=== PATIENT | male | born 1990 | race Two or more races ===

== ENCOUNTER 2018-11-06 13:00 | Emergency (ER) | payer SELFPAY ==
[~2018-11-06] VITALS: Ht 170.2 cm; Wt 104.3 kg
[2018-11-06 13:07] VITALS: BP 140/74
[2018-11-06] MEDS ORDERED: CEFTRIAXONE 500 MG VIAL ONE (13:23)
[2018-11-06] MEDS ORDERED: AZITHROMYCIN 250 MG TABLET ONE (13:23)
[2018-11-06] MEDS ORDERED: LIDOCAINE /MPF 1% VIAL 5 ML VIAL ONE (13:24)
[2018-11-06] MEDS ORDERED: CEFTRIAXONE 1 G VIAL IM ONE (13:30)
[2018-11-06] MEDS ORDERED: AZITHROMYCIN 250 MG TABLET PO ONE (13:30)
== END 2018-11-06 13:35 | disposition home or self-care (01) ==
LOC: ER 13:07
DX: N34.2 Other urethritis (principal); J45.909 Unspecified asthma, uncomplicated
CPT/HCPCS: 96372; 99283; J0696; J3490

== ENCOUNTER 2018-11-09 10:08 | Emergency (ER) | payer SELFPAY ==
[~2018-11-09] VITALS: Ht 170.2 cm; Wt 92.1 kg
[2018-11-09 10:16] VITALS: BP 144/78
== END 2018-11-09 10:49 | disposition home or self-care (01) ==
LOC: ER 10:11
DX: R30.0 Dysuria (principal); J45.909 Unspecified asthma, uncomplicated
CPT/HCPCS: Z7502